=== PATIENT | female | born 1965 | race Caucasian/White ===

== ENCOUNTER 2019-11-16 18:06 | Emergency (ER) | payer MEDICAID ==
[~2019-11-16] VITALS: Ht 160 cm; Wt 90.7 kg
[~2019-11-16 18:06] MED LIST: IBUP-1953 PO
[2019-11-16 18:13] VITALS: BP 131/77
[2019-11-16] MEDS ORDERED: ACETAMINOPHEN ES 500 MG TABLET ONE (18:58)
[2019-11-16] MEDS: ACETAMINOPHEN 325 MG TABLET PO ONE (18:59)
--- NOTE | 2019-11-16 19:00 | NUR ---
Patient awakealert non distress med given awaiting for xray
--- NOTE | 2019-11-16 19:38 | NUR ---
Patient discharged to home in stable condition. Written and verbal after care instructions given. Patient verbalizes understanding of instruction.
== END 2019-11-16 19:38 | disposition home or self-care (01) ==
LOC: ER 18:11
DX: S93.491A Sprain of other ligament of right ankle, initial encounter (principal); I10 Essential (primary) hypertension; E07.9 Disorder of thyroid, unspecified; X50.1XXA Overexertion from prolonged static or awkward postures, initial encounter; Y93.01 Activity, walking, marching and hiking; Y92.89 Other specified places as the place of occurrence of the external cause; Y99.8 Other external cause status
CPT/HCPCS: 73610-TC